=== PATIENT | male | born 1970 | race Caucasian/White ===

== ENCOUNTER 2021-05-19 09:18 | Emergency (ER) | payer OTHER ==
--- NOTE | 2021-05-19 09:58 | ERPHSYRPT ---
- History of Present Illness Time Seen by Provider: 05/19/21 09:47 Source: patient Exam Limitations: no limitations Patient Subjective Stated Complaint: pt reports dx of bilat ear infection thursday, Dr Spencer treated him with augmentin, states today his right side lip is swollen with sores inside his mouth and tongue. Triage Nursing Assessment: pt is aox3, appears in pain, afebrile, resps easy and non labored, cap refill < 3 seconds, radial pulses strong and equal, moderate swelling noted to the bottom right lip and jaw area, small blisters noted to the right chin with honey colored crusts. pt is able to handle his own secretions. Physician History: Patient is a 51-year-old male who presents with a complaint of right ear pain. And right facial pain. He was seen Thursday by his PCP and diagnosed with a bilateral ear infection he has since developed pain in the right ear right side of the face a vesicular area of rash at the right chin and right lip. Timing/Duration: day(s) (3) Quality: burning, painful Severity: severe Location: face Possible Causes: other (Childhood chickenpox) Associated Symptoms: blisters, rash, other (Right ear pain) Allergies/Adverse Reactions: No Known Drug Allergies Allergy (Unverified 05/19/21 09:38) Home Medications: Olmesartan Medoxomil 20 mg [Benicar 20 MG] 20 mg PO DAILY 05/19/21 [History] Tizanidine HCl 4 mg [Zanaflex 4 MG] 4 mg PO DAILY 05/19/21 [History] Hx Tetanus, Diphtheria Vaccination/Date Given: Yes Hx Influenza Vaccination/Date Given: No Hx Pneumococcal Vaccination/Date Given: No Immunizations Up to Date: Yes Travel Risk - International Travel Have you traveled outside of the country in past 3 weeks: No - Coronavirus Screening Are you exhibiting any of the following symptoms?: No Close contact with a COVID-19 positive Pt in past 14-21 Days: No - Vaccine Status Have you recieved a Covid-19 vaccination: Yes 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[facility] - Vaccination Dates Date of 2cond Vaccination (if applicable): 03/18/21 - Review of Systems Constitutional: No Fever, No Chills Eyes: No Symptoms Ears, Nose, & Throat: Ear Pain, Painful Swallowing Respiratory: No Cough, No Dyspnea Cardiac: No Chest Pain, No Edema, No Syncope Abdominal/Gastrointestinal: No Abdominal Pain, No Nausea, No Vomiting, No Diarrhea Genitourinary Symptoms: No Dysuria Musculoskeletal: No Back Pain, No Neck Pain Skin: No Rash Neurological: No Dizziness, No Focal Weakness, No Sensory Changes Psychological: No Symptoms Endocrine: No Symptoms All Other Systems: Reviewed and Negative - Past Medical History Pertinent Past Medical History: No Cardiac History: High Cholesterol, Hypertension History: Other Other Medical History: kidney stones - Past Surgical History Past Surgical History: Yes Gastrointestinal: Appendectomy Genitourinary: Other Other Surgical History: kidney stone removal - Social History Smoking Status: Never smoker Drug Use: none - Nursing Vital Signs Nursing Vital Signs: Initial Vital Signs Temperature 97.8 F 05/19/21 09:23 Pulse Rate 77 05/19/21 09:23 Respiratory Rate 20 05/19/21 09:23 Blood Pressure 147/92 05/19/21 09:23 O2 Sat by Pulse Oximetry 96 05/19/21 09:23 Pain Scale Pain Intensity 6 - Physical Exam General Appearance: moderate distress, alert Eye Exam: PERRL/EOMI, eyes nml inspection Ears, Nose, Throat Exam: pharynx normal, other (Shallow ulcerations the right lower lip both on the external portion of the lip and the internal portion. In addition there is the area of vesicular rash at the site of the mental nerve on the right side) Neck Exam: normal inspection, non-tender, supple, full range of motion Respiratory Exam: normal breath sounds, lungs clear, No respiratory distress Cardiovascular Exam: regular rate/rhythm, normal heart sounds Gastrointestinal/Abdomen Exam: soft, mass, No tenderness Back Exam: normal inspection, normal range of motion, No CVA tenderness, No vertebral tenderness Extremity Exam: normal inspection, normal range of motion Neurologic Exam: alert, oriented x 3, cooperative, normal mood/affect, sensation nml, No motor deficits Skin Exam: normal color, warm, dry SpO2 Interpretation: normal SpO2: 96 O2 Delivery: Room Air - Course Nursing assessment & vital signs reviewed: Yes - Progress Progress: unchanged - Departure Departure Disposition: Home Clinical Impression: Herpes zoster Condition: Stable Critical Care Time: No Referrals: LEXI PERDUE MD [Primary Care Provider] - Instructions: Shingles (DC) Prescriptions: Hydrocodone/Acetaminophen [Hydrocodone-Acetamin 5-325 mg] 1 tab PO Q6HPRN PRN 3 Days #12 tablet MDD 4 PRN Reason: Pain Prednisone 10 mg [Deltasone 10 mg] 10 mg PO TID 6 Days #18 tablet Gabapentin 300 mg [Neurontin 300 mg] 300 mg PO BID 7 Days #14 Valacyclovir HCl [Valtrex] 1,000 mg PO TID 7 Days #21 tablet
[2021-05-19] MEDS ORDERED: solu-MEDROL 40 MG IM ONE (11:07)
[2021-05-19] MEDS ORDERED: solu-MEDROL ONE (11:12)
[2021-05-19 11:20] VITALS: O2SAT 97
[2021-05-19 11:42] VITALS: BP 147/93; PULSE 84
== END 2021-05-19 11:41 | disposition home or self-care (01) ==
LOC: ED 09:18
DX: B02.9 Zoster without complications (principal)
CPT/HCPCS: 96372; 99283; J2920; J2930